=== PATIENT | female | born 1995 | race Caucasian/White ===

== ENCOUNTER 2016-11-23 15:28 | Emergency (ER) | payer OTHER ==
[~2016-11-23] VITALS: Ht 154.9 cm; Wt 55.3 kg
[2016-11-23 15:35] VITALS: BP 100/65; PULSE 59; TEMP 36.7; O2SAT 98; Ht 154.9 cm; Wt 55.3 kg
--- NOTE | 2016-11-23 16:04 | DIAGNOSTIC IMAGING REPORT ---
RIGHT WRIST MIN 3 VIEWS ROUTINE CLINICAL HISTORY: 21 years-old Female presenting with Right wrist pain, no known injury. TECHNIQUE: Frontal, bilateral oblique, and lateral views of the right wrist were obtained. COMPARISON: None. FINDINGS: No acute fracture or malalignment. Soft tissues grossly normal. No radiopaque foreign body. IMPRESSION: No acute osseous injury of the right wrist. Electronically signed by: Umesh Chung M.D. 11/23/2016 4:02 PM Dictated Date/Time: 11/23/2016 3:53 PM
--- NOTE | 2016-11-23 16:50 | EMERGENCY ROOM VISIT NOTE ---
History First contact with patient: 15:52 Chief Complaint: WRIST PAIN Stated Complaint: SWELLING TO RT WRIST, BUMP ON WRIST W/PAIN History of Present Illness The patient is a 21 year old female who presents to the Emergency Room with complaints of swelling of her right wrist. The patient reports that she noticed a lump and pain yesterday. 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 She is [id number]. She denies any pain or numbness extending into the forearm or fingers. She rates her discomfort a 6 out of 10. Review of Systems 10 system review was performed and was negative except for pertinent positives and negatives as indicated in history of present illness Past Medical/Surgical History Medical Problems: (1) No significant past medical history Surgical Problems: (1) History of dental surgery Family History FH: cancer FH: diabetes mellitus FH: heart disease FH: hypertension FH: lung disease Social History Smoking Status: Never Smoker Alcohol Use: occasionally Marital Status: single Occupation Status: [employer] student Current/Historical Medications No Active Prescriptions or Reported Meds Physical Exam Vital Signs Date Time Temp Pulse Resp B/P (MAP) Pulse Ox O2 Delivery O2 Flow Rate FiO2 11/23/16 15:35 36.7 59 20 100/65 98 Room Air Physical Exam CONSTITUTIONAL: Healthy and well nourished. Alert and oriented X 3 with positive affect. HEENT: Normocephalic, atraumatic. Pupils equal, round and reactive. NECK: Full active range of motion without discomfort. MUSCULOSKELETAL: Examination shows a small area of edema over the radial aspect of the distal radius. There is no overriding erythema, ecchymosis or other skin changes. She has mild tenderness to palpation over the distal radius. No focal tenderness through the anatomic snuffbox, distal ulna, or remaining wrist region. She has no significant discomfort with pronation or supination. Capillary refill is less than 2 seconds. INTEGUMENTARY: No rash or other significant dermatologic conditions noted. NEUROLOGIC: No focal neurologic deficits noted. Right hand and fingers are sensory intact. Medical Decision & Procedures ER Provider Diagnostic Interpretation: My interpretation of right wrist x-rays does not show any obvious fractures or suspicious bony lesions. Radiologist report is as follows: RIGHT WRIST MIN 3 VIEWS ROUTINE CLINICAL HISTORY: 21 years-old Female presenting with Right wrist pain, no known injury. TECHNIQUE: Frontal, bilateral oblique, and lateral views of the right wrist were obtained. COMPARISON: None. FINDINGS: No acute fracture or malalignment. Soft tissues grossly normal. No radiopaque foreign body. IMPRESSION: No acute osseous injury of the right wrist. ED Course Patient history and physical exam were performed. Nurse's notes were reviewed. Vital signs were reviewed and normal. The patient refused any analgesics. X- rays of the right wrist were normal. The patient was provided an ice pack, and encouraged to intermittently apply ice for swelling and pain. Ibuprofen or Tylenol if needed for additional pain relief. The patient was provided contact information for [facility] if symptoms are not improving within the next week. She was instructed to return to the emergency department for any developing redness, red streaks or fever. The patient was happy with plan of care, voiced understanding of all discharge instructions, and rated her discomfort a 4 out of 10 at the time of discharge. Medical Decision Medication Reconcilliation Current Medication List: was personally reviewed by nj Blood Pressure Screening Patient's blood pressure: Normal blood pressure Impression Primary Impression: Pain and swelling of right wrist Departure Information Dispostion Home / Self-Care Prescriptions No Active Prescriptions or Reported Meds Forms HOME CARE DOCUMENTATION FORM, IMPORTANT VISIT INFORMATION Patient Instructions [employer] Additional Instructions Intermittently apply ice for swelling. Ibuprofen or Tylenol as needed for pain. Follow-up with orthopedics (Dr. Sevilla) if swelling and pain persists longer than 5-7 days. Return to the emergency department for any developing redness, red streaks or fever.
== END 2016-11-23 16:53 | disposition home or self-care (01) ==
LOC: C.EDB 15:31 → C.EDD 16:53
DX: M25.531 Pain in right wrist (principal); R22.31 Localized swelling, mass and lump, right upper limb; Z98.890 Other specified postprocedural states; Z80.9 Family history of malignant neoplasm, unspecified; Z83.3 Family history of diabetes mellitus; Z82.49 Family history of ischemic heart disease and other diseases of the circulatory system

== ENCOUNTER 2017-01-13 02:43 | Emergency (ER) | payer OTHER ==
[~2017-01-13] VITALS: Ht 172.7 cm; Wt 54.4 kg
[2017-01-13 02:54] VITALS: TEMP 36.5; Ht 172.7 cm; Wt 54.4 kg
--- NOTE | 2017-01-13 02:58 | EMERGENCY ROOM VISIT NOTE ---
History Report prepared by Brittnee: Bradley Garcia Under the Supervision of: Dr. Inga Joy D.O. First contact with patient: 02:46 Chief Complaint: ALCOHOL OVERDOSE Stated Complaint: ALCOHOL OVERDOSE History of Present Illness The patient is a 21 year old female who presents to the Emergency Room via EMS with a persistent alcohol intoxication that started prior to arrival this morning. Per EMS, the patient was found unconscious on the porch of her house by a passerby, who called EMS. Before EMS arrived, the patient's roommate brought the patient to her bed. EMS states that the patient was conscious on her bed and was alert but not very responsive. The patient was able to get up walking with assistance. She was then brought here by EMS. Per EMS, the patient was most likely not using drugs. The patient notes no health problems. History limited secondary to patient's alcohol intoxication. Source of History: patient, EMS, nursing staff History Limited By: intoxication Onset: Prior to arrival this morning Position: other (global - alcohol intoxication) Timing: other (persistent) Note: Associated symptoms: Found unconscious on porch. When EMS arrived, patient was alert but not very responsive. Able to walk with assistance. Review of Systems ROS limited secondary to patient's alcohol intoxication. Past Medical & Surgical Medical Problems: (1) No significant past medical history Surgical Problems: (1) History of dental surgery Family History FH: cancer FH: diabetes mellitus FH: heart disease FH: hypertension FH: lung disease Social History Smoking Status: Never Smoker Alcohol Use: occasionally Marital Status: single Occupation Status: [employer] student Current/Historical Medications No Active Prescriptions or Reported Meds Allergies Coded Allergies: No Known Allergies (Unverified , 01/13/17) Physical Exam Vital Signs Date Time Temp Pulse Resp B/P (MAP) Pulse Ox O2 Delivery O2 Flow Rate FiO2 01/13/17 05:31 69 16 90/44 99 Room Air 01/13/17 04:00 70 16 88/43 97 Room Air 01/13/17 02:54 36.5 58 16 93/51 97 Room Air 01/13/17 02:52 59 Physical Exam General: Semi-responsive. Smells of alcohol. HEENT: Head - normocephalic and atraumatic Pupils are 6 mm and sluggish, reactive to light. Extraocular eye muscles are intact, and sclera are anicteric. Nose - moist nasal mucosa without discharge. Mouth - moist buccal mucosa. Oropharynx is nonerythematous and there is no tonsillar exudate or edema noted. Neck: Supple; no JVD, nuchal rigidity, cervical lymphadenopathy. Heart: Regular rate and rhythm. There is a normal S1 and S2 with no murmurs, clicks, or gallops appreciated. Lungs: Clear to auscultation bilaterally with no wheezes, rales, or rhonchi. Abdomen: Soft, completely nontender, nondistended, with good bowel sounds. There are no palpable pulsatile masses or hepatosplenomegaly. There is no guarding, rigidity, or rebound noted. Extremities: No evidence of cyanosis, clubbing, or edema. There are easily palpable peripheral pulses. Skin: warm and dry with good turgor and no rashes. Medical Decision & Procedures Laboratory Results 01/13/17 03:00 Test 01/13/17 03:00 Anion Gap 7.0 mmol/L (3-11) Est Creatinine Clear Calc Drug Dose 121.3 ml/min Estimated GFR () 148.6 Estimated GFR (Non- 128.2 BUN/Creatinine Ratio 15.8 (10-20) Calcium Level 8.4 mg/dl (8.5-10.1) Ethyl Alcohol mg/dL 287.0 mg/dl (0-3) Laboratory results per my review. ED Course 0249: The patient was evaluated in room A12B. A limited history and physical exam was performed. The patient was placed in the prone position to avoid aspiration. She was observing the vegetable farm manager and pulse oximeter. Labs were drawn as above. 0417: I reevaluated the patient and she is sound asleep and hemodynamically stable. 0450: I reevaluated the patient and she is sound asleep. Her vitals are stable. 0630: The patient was signed out to Dr. Roa. Medical Decision The patient is a 21 year old female who presents to the ED with alcohol intoxication. Differential diagnosis includes alcohol overdose, drug intoxication, hypoglycemia, head injury. Lab results show alcohol of 287, glucose of 86, normal renal function, potassium is slightly low at 3.4. This is a 21-year-old female patient who was found unresponsive on a porch. Upon EMS and police arrival, she admitted airway and the house. However she was not making sense. She was transported here for evaluation. The patient was semi-responsive on my exam. Her alcohol level was significantly elevated at 287. The patient was kept here in the emergency department while she sobered up. The case will be signed out to Dr. roa at change of shift awaiting sobriety. Medication Reconcilliation Current Medication List: was personally reviewed by me No medications on list. Blood Pressure Screening Patient's blood pressure: Normal blood pressure Impression Primary Impression: Alcohol overdose Scribe Attestation The scribe's documentation has been prepared under my direction and personally reviewed by me in its entirety. I confirm that the note above accurately reflects all work, treatment, procedures, and medical decision making performed by me. Departure Information Dispostion Still a Patient (signed out to Dr. Roa ) Prescriptions No Active Prescriptions or Reported Meds Referrals No Doctor, Assigned (PCP) Patient Instructions My [facility] Problem Qualifiers Primary Impression: Alcohol overdose Encounter type: initial encounter Injury intent: undetermined intent Qualified Codes: T51.94XA - Toxic effect of unspecified alcohol, undetermined, initial encounter
[2017-01-13 03:33] LABS: BUN/CREATININE RATIO 15.8 (10-20); CALCIUM 8.4 mg/dl (8.5-10.1); CREATININE 0.63 mg/dl (0.60-1.20); POTASSIUM 3.4 mmol/L (3.5-5.1)
--- NOTE | 2017-01-13 07:19 | EMERGENCY ROOM VISIT NOTE ---
ED Visit Note First contact with patient: 06:49 I received the patient is a signout from Dr. oJy this morning. The patient is a 21-year-old woman who presents emergency Department with alcohol intoxication. Patient's blood alcohol was 280. Otherwise, exam unremarkable and patient is afebrile with stable vital signs. Plan for discharge at 10 AM once metabolized to clinical sobriety. At 10am patient reassessed and still intoxicated, thus observed until 1200 when clinically sober and friends arrived to take patient home. Patient counseled on risks of binge drinking. d/c per [facility].
[2017-01-13] MEDS ORDERED: ONDANSETRON 4MG OD TAB PO ONE (10:30)
[2017-01-13 11:38] VITALS: BP 108/68; PULSE 82; O2SAT 100
== END 2017-01-13 11:57 | disposition home or self-care (01) ==
LOC: EDBD 02:43 → C.EDA 02:46
DX: T51.91XA Toxic effect of unspecified alcohol, accidental (unintentional), initial encounter (principal)